=== PATIENT | female | born 1955 | race Two or more races ===

== ENCOUNTER 2019-06-13 13:51 | Outpatient (CLI) | payer OTHER ==
[~2019-06-13 13:51] MED LIST: AMOX1TAB12 PO; CLEOCIN HCL300 MG PO; DURICEF 500 MG CAPSULE PO; MOTRIN800 MG PO; Ultracet Tablet PO
== END 2019-06-13 13:54 | disposition home or self-care (01) ==
LOC: RAD 13:51 → SONOGRAMA 13:51
DX: M79.18 Myalgia, other site (principal)

== ENCOUNTER → 2020-11-12 16:55 | Outpatient (CLI) | payer OTHER | END | disposition home or self-care (01) | LOC: PPH VACUNA 16:55 | PROVIDERS: ATTEND Emergency Medicine Pediatric Emergency Medicine | DX: Z23 Encounter for immunization (principal) ==

== ENCOUNTER 2021-02-27 13:09 | Emergency (ER) | payer OTHER ==
[~2021-02-27] VITALS: Ht 149.9 cm; Wt 63.5 kg
[2021-02-27] MEDS ORDERED: ECOTRIN81 MG (13:17)
[2021-02-27] MEDS ORDERED: EVISTA60 MG (13:17)
[2021-02-27] MEDS ORDERED: ATIVAN1 M1 (13:18)
[2021-02-27] MEDS ORDERED: EFFEXOR XR75 MG (13:18)
== END 2021-02-27 15:32 | disposition home or self-care (01) ==
LOC: ER 13:09
DX: R06.02 Shortness of breath (principal); F06.4 Anxiety disorder due to known physiological condition

== ENCOUNTER 2021-05-23 16:32 | Emergency (ER) | payer OTHER ==
[~2021-05-23] VITALS: Ht 149.9 cm; Wt 65.8 kg
[~2021-05-23 16:32] MED LIST changes: +ATIVAN1 M1; +ECOTRIN81 MG; +EFFEXOR XR75 MG; +EVISTA60 MG
[2021-05-23] MEDS ORDERED: LIPITOR20 MG (16:46)
[2021-05-23] MEDS ORDERED: ZYRTEC10 MG (16:47)
[2021-05-23] MEDS ORDERED: FLONASE ALLERG9.9 ML NASAL (22:01)
[2021-05-23] MEDS ORDERED: MEDROLPACK PO (22:01)
== END 2021-05-23 22:41 | disposition home or self-care (01) ==
LOC: ER 16:32
DX: J45.901 Unspecified asthma with (acute) exacerbation (principal); Z20.822 Contact with and (suspected) exposure to COVID-19

== ENCOUNTER 2021-05-25 11:41 | Emergency (ER) | payer OTHER ==
[~2021-05-25] VITALS: Ht 149.9 cm; Wt 65.8 kg
[~2021-05-25 11:41] MED LIST changes: +FLONASE ALLERG9.9 ML NASAL; +LIPITOR20 MG; +MEDROLPACK PO; +ZYRTEC10 MG
== END 2021-05-25 16:56 ==
LOC: ER 11:41
DX: J40 Bronchitis, not specified as acute or chronic (principal); R05.9 Cough, unspecified

== ENCOUNTER 2021-06-28 15:00 | Outpatient (CLI) | payer OTHER | END 2021-06-28 15:30 | disposition home or self-care (01) | LOC: PPH VACUNA 15:00 | PROVIDERS: ATTEND Emergency Medicine Pediatric Emergency Medicine | DX: Z23 Encounter for immunization (principal) ==

== ENCOUNTER 2022-08-01 13:51 | Emergency (ER) | payer OTHER ==
[~2022-08-01] VITALS: Ht 149.9 cm; Wt 65.3 kg
[~2022-08-01 13:51] MED LIST changes: +KETO10TA2 PO; +NORFLEX100MG PO
== END 2022-08-01 18:32 | disposition home or self-care (01) ==
LOC: ER 13:51
DX: R05.9 Cough, unspecified (principal); Z85.3 Personal history of malignant neoplasm of breast; I10 Essential (primary) hypertension; E78.00 Pure hypercholesterolemia, unspecified; Z20.822 Contact with and (suspected) exposure to COVID-19

== ENCOUNTER 2022-09-29 08:24 | Emergency (ER) | payer OTHER ==
[~2022-09-29] VITALS: Ht 149.9 cm; Wt 65.8 kg
[2022-09-29] MEDS ORDERED: PROAIR RESPICL90 MCG IH (09:55)
[2022-09-29] MEDS ORDERED: MEDROLPACK PO (09:55)
[2022-09-29] MEDS ORDERED: PAXLOVID 300-11 EACH PO (09:55)
== END 2022-09-29 11:29 | disposition home or self-care (01) ==
LOC: ER 08:24
DX: U07.1 COVID-19 (principal)

== ENCOUNTER 2023-03-10 08:03 | Emergency (ER) | payer OTHER ==
[~2023-03-10] VITALS: Ht 149.9 cm; Wt 68.0 kg
[~2023-03-10 08:03] MED LIST changes: +PAXLOVID 300-11 EACH PO; +PROAIR RESPICL90 MCG IH
[2023-03-10] MEDS ORDERED: ADULT LOW DOSE81 M1 PO (08:38)
[2023-03-10] MEDS ORDERED: EVISTA60 MG PO (08:38)
[2023-03-10] MEDS ORDERED: COZAAR25 MG PO (08:39)
[2023-03-10] MEDS ORDERED: LIPITOR20 MG PO (08:39)
[2023-03-10] MEDS ORDERED: ATIVAN1 M1 PO (08:39)
[2023-03-10] MEDS ORDERED: ZYRTEC10 M3 PO (08:40)
[2023-03-10] MEDS ORDERED: EFFEXOR XR75 MG PO (08:40)
== END 2023-03-10 12:04 | disposition home or self-care (01) ==
LOC: ER 08:03
DX: S83.8X1A Sprain of other specified parts of right knee, initial encounter (principal); X58.XXXA Exposure to other specified factors, initial encounter; Y93.9 Activity, unspecified; Y92.9 Unspecified place or not applicable; Y99.9 Unspecified external cause status; M17.11 Unilateral primary osteoarthritis, right knee; I10 Essential (primary) hypertension
CPT/HCPCS: 73718; 93005; 96372; 99284; J1885; 73721

== ENCOUNTER 2023-09-09 12:31 | Emergency (ER) | payer OTHER ==
[~2023-09-09] VITALS: Ht 149.9 cm; Wt 66.2 kg
[~2023-09-09 12:31] MED LIST changes: +ADULT LOW DOSE81 M1 PO; +ATIVAN1 M1 PO; +COZAAR25 MG PO; +EFFEXOR XR75 MG PO; +EVISTA60 MG PO; +LIPITOR20 MG PO; +ZITHROMAX500 MG PO; +ZYRTEC10 M3 PO
[2023-09-09 15:19] LABS: PH,URINE 7.5 (5.0-8.0); URINE APPEARANCE Clear; URINE BILIRRUBIN Negative (NEGATIVE); URINE BLOOD Negative; URINE COLOR Yellow; URINE GLUCOSE Negative (NEGATIVE); URINE LEUKOCYTE Negative; URINE NITRATE Negative; URINE PROTEIN Negative (NEGATIVE); URINE UROBILINOGEN 0.2 E.U./dl
[2023-09-09 15:24] LABS: URINE BACTERIA 26.4 uL (0.0-1933); URINE EPITHELIAL CELLS 7.2 uL (0.0-38.8); URINE RBC 2.4 uL (0.0-20.8)
[2023-09-09] MEDS ORDERED: ADVIL DUAL ACT1 EACH PO (15:44)
== END 2023-09-09 15:54 | disposition home or self-care (01) ==
LOC: ER 12:31
PROVIDERS: Emergency Medicine
DX: M54.50 Low back pain, unspecified (principal); I10 Essential (primary) hypertension